=== PATIENT | female | born 1980 | race Caucasian/White ===

== ENCOUNTER → 2017-03-09 | Outpatient (CLI) | payer MEDICAID ==
[2017-03-09 11:10] LABS: Basophils # (A) 0.1 k/uL (0-0.2); Basophils % (A) 1 %; CH 30.5; CHCM 33.5; Eosinophils # (A) 0.3 k/uL (0-0.7); Eosinophils % (A) 3 %; HCT 45.4 % (34.0-46.0); HDW 2.41; Luc # (Auto) 0.21; Luc % (Auto) 2; Lymphocytes # (A) 3.3 k/uL (1.0-4.8); Lymphocytes % (A) 35 %; MCH 30.3 pg (25.0-35.0); MCHC 33.1 g/dL (31.0-37.0); MCV 91.5 fL (80.0-100.0); Mean Platelet Volume 6.3; Monocytes # (A) 0.5 k/uL (0-1.0); Monocytes % (A) 5 %; Neutrophils # (A) 5.2 k/uL (1.3-7.7); Neutrophils % (A) 54 %; RBC 4.96 m/uL (3.80-5.40); RDW 13.2 % (11.5-15.5); WBC 9.6 k/uL (3.8-10.6); WBC (Perox) 9.89
[2017-03-09 11:23] LABS: ALT 36 U/L (9-52); AST 18 U/L (14-36); Alkaline Phosphatase 78 U/L (38-126); Anion Gap 9 mmol/L; Blood Urea Nitrogen 11 mg/dL (7-17); Calcium 9.4 mg/dL (8.4-10.2); Carbon Dioxide 27 mmol/L (22-30); Chloride 104 mmol/L (98-107); Cholesterol 255 mg/dL (<200); Glucose 94 mg/dL (74-99); HDL Cholesterol 58 mg/dL (40-60); Non-African American GFR(MDRD) >60 (>60 ml/min/1.73 sqM); Potassium 4.2 mmol/L (3.5-5.1); Sodium 140 mmol/L (137-145); Total Bilirubin 0.7 mg/dL (0.2-1.3); Total Protein 7.3 g/dL (6.3-8.2); Triglycerides 204 mg/dL (<150)
== END | disposition home or self-care (01) ==
LOC: LABWHC1 10:38
PROVIDERS: ATTEND Family Medicine
DX: Z00.00 Encounter for general adult medical examination without abnormal findings (principal)
CPT/HCPCS: 36415; 80053; 80061; 84439; 84443; 85025

== ENCOUNTER → 2017-06-01 | Outpatient (CLI) | payer MEDICAID ==
[2017-06-01 14:06] LABS: ALT 38 U/L (9-52); AST 17 U/L (14-36); Alkaline Phosphatase 87 U/L (38-126); Anion Gap 6 mmol/L; Blood Urea Nitrogen 8 mg/dL (7-17); Calcium 9.1 mg/dL (8.4-10.2); Carbon Dioxide 26 mmol/L (22-30); Chloride 105 mmol/L (98-107); Cholesterol 150 mg/dL (<200); Glucose 88 mg/dL (74-99); HDL Cholesterol 51 mg/dL (40-60); Non-African American GFR(MDRD) >60 (>60 ml/min/1.73 sqM); Potassium 4.3 mmol/L (3.5-5.1); Sodium 137 mmol/L (137-145); Total Bilirubin 0.6 mg/dL (0.2-1.3); Total Protein 6.1 g/dL (6.3-8.2)
== END | disposition home or self-care (01) ==
LOC: LABWHC1 12:34
PROVIDERS: ATTEND Family Medicine
DX: E78.2 Mixed hyperlipidemia (principal)
CPT/HCPCS: 36415; 80053; 80061

== ENCOUNTER → 2017-10-31 | Outpatient (CLI) | payer MEDICAID ==
[2017-10-31 09:23] LABS: Basophils # (A) 0.1 k/uL (0-0.2); Basophils % (A) 1 %; Eosinophils # (A) 0.3 k/uL (0-0.7); Eosinophils % (A) 3 %; HCT 47.1 % (34.0-46.0); HGB 14.8 gm/dL (11.4-16.0); Lymphocytes % (A) 35 %; MCH 28.7 pg (25.0-35.0); MCHC 31.4 g/dL (31.0-37.0); MCV 91.1 fL (80.0-100.0); Mean Platelet Volume 6.8; Monocytes # (A) 0.5 k/uL (0-1.0); Monocytes % (A) 6 %; Neutrophils # (A) 4.6 k/uL (1.3-7.7); Neutrophils % (A) 54 %; Platelet Count 288 k/uL (150-450); RBC 5.17 m/uL (3.80-5.40); RDW 12.8 % (11.5-15.5); WBC 8.5 k/uL (3.8-10.6)
[2017-10-31 09:38] LABS: ALT 30 U/L (9-52); AST 15 U/L (14-36); Albumin 3.7 g/dL (3.5-5.0); Alkaline Phosphatase 59 U/L (38-126); Anion Gap 8 mmol/L; Blood Urea Nitrogen 14 mg/dL (7-17); Calcium 9.5 mg/dL (8.4-10.2); Carbon Dioxide 27 mmol/L (22-30); Chloride 104 mmol/L (98-107); Cholesterol 137 mg/dL (<200); Glucose 104 mg/dL (74-99); HDL Cholesterol 49 mg/dL (40-60); LDL Cholesterol,Calculated 67 mg/dL (0-99); Potassium 4.8 mmol/L (3.5-5.1); Sodium 139 mmol/L (137-145); Total Bilirubin 0.5 mg/dL (0.2-1.3); Total Protein 5.9 g/dL (6.3-8.2); Triglycerides 104 mg/dL (<150)
[2017-10-31 09:53] LABS: T4, Free (Free Thyroxine) 0.85 ng/dL (0.78-2.19)
== END | disposition home or self-care (01) ==
LOC: LABWHC1 08:59
PROVIDERS: ATTEND Family Medicine
DX: E78.5 Hyperlipidemia, unspecified (principal); R63.5 Abnormal weight gain; N92.6 Irregular menstruation, unspecified
CPT/HCPCS: 36415; 80053; 80061; 83001; 83002; 84439; 84443; 85025

== ENCOUNTER 2018-04-05 09:30 | Day surgery (SDC) | payer MEDICAID ==
[2018-04-02 09:25] VITALS: BMI 41.1
--- NOTE | 2018-04-05 05:09 | HP ---
HISTORY AND PHYSICAL CHIEF COMPLAINT: Chronic right serous otitis media. HISTORY OF PRESENT ILLNESS: This patient is a pleasant 37-year-old female who was recently seen in my office complaining of having a plugged sensation in her right ear which began just before Father's Day this year. She has been on oral antibiotics with no significant improvement. At the time that she was seen in my office, clinical examination of the ears revealed the patient had chronic right serous otitis media so-called glue ear. The patient was placed on a course of oral steroids for 10 days. On her recheck in the office, clinical examination revealed there was no change than her previous exam and therefore it was recommended the patient undergo a right myringotomy with insertion of ventilation tubes. The patient was, however, advised that if at the time of surgery if no fluid was found than either a tube would not be inserted or if a tube was inserted it would most likely be a pediatric Tytan tube. PAST MEDICAL HISTORY: Past medical history reveals that the patient has no known allergies to medications. Current medications include Lipitor. There is no history of asthma, diabetes mellitus or hypertension. She has not had any previous surgeries. REVIEW OF SYSTEMS: Review of systems is positive with respect to the metabolic endocrine system in that the patient is known to have hypercholesterolemia. The remainder of the review of systems is unremarkable. PHYSICAL EXAMINATION: This patient is a very pleasant, 37-year-old female who was alert and cooperative. HEENT EXAMINATION: Patient is normocephalic. Examination of the left ear is unremarkable. Examination of the right ear reveals the right tympanic membrane is dull with fluid in the right middle ear space. Pupils equal, round and react to light and accommodation. Extraocular movements within normal limits. Intranasal examination, examination of oropharynx and the remainder of the head and neck exam including cranial nerves 2 through 12 are all within normal limits. CHEST/CARDIOVASCULAR: Both lung babb are clear to percussion and auscultation. Patient is in regular sinus rhythm. S1 and S2 are present without evidence of any murmurs, S3s or S4s. Peripheral pulses are bilaterally symmetrical and within normal limits. ABDOMEN: There is no evidence of any masses, megaly or tenderness. The abdomen is soft. Skin is unremarkable. Musculoskeletal and neurological are within normal limits. PELVIC RECTAL EXAM: The pelvic rectal exam is deferred at this time because the patient has this done on a regular basis at her family physician's office. The remainder of the physical exam is unremarkable. IMPRESSION: Chronic right serous otitis media. PLAN: The patient is scheduled undergo a right myringotomy with insertion of ventilation tube under IV sedation with MAC in a.m. ATTENTION RNS IN THE PRE-SURGICAL AREA: I have not ordered any pre-surgical prophylactic antibiotics for this patient. If the pharmacy department sends any pre- surgical prophylactic antibiotics for this patient to the pre-surgical area, that order should be canceled and the medication returned to the pharmacy department. Please make sure that the patient's account is credited appropriately. I have discussed the risks, benefits and alternative therapies for the above-mentioned procedure and for both sedation/analgesia as well as necessary blood product administration, if indicated, as they pertain to this patient. The patient has indicated his or her understanding and acceptance of the risks and procedures discussed. ANNE MARIE / UNIQUE: [id number] /
[~2018-04-05 09:30] MED LIST: DEXAMETHASONE SOD PHOSPHATE 10 MG/ML 1 ML VIAL IV ONE; LACTATED RINGERS 1,000 ML IV SCH; LIDOCAINE 1% 20 ML VIAL (10MG/ML) FOR IV START INTRADERMA PRN; Pre Op ABX Message 1 EACH MISC MISCELLANE ONE
[2018-04-05 10:22] VITALS: TEMP 99.1
[2018-04-05] MEDS ORDERED: ONDANSETRON 4 MG/2 ML VIAL IVP ONE (10:34)
[2018-04-05] MEDS ORDERED: PROPOFOL 10 MG/ML 20 ML VIAL IV ONE (10:57)
[2018-04-05] MEDS ORDERED: MIDAZOLAM 2 MG/2 ML VIAL ONE (10:57)
[2018-04-05] MEDS ORDERED: KETAMINE 10 MG/ML 20 ML VIAL ONE (10:57)
[2018-04-05] MEDS ORDERED: fentaNYL (PF) 50 MCG/ML 2 ML AMP ONE (10:57)
[2018-04-05] MEDS ORDERED: LIDOCAINE 1% INJ 10MG/ML (20 ML MDV) ONE (10:57)
[2018-04-05] MEDS ORDERED: OFLOXACIN 0.3% OTIC DROPS 5 ML BTL RIGHT EAR ONE (11:13)
[2018-04-05 11:28] VITALS: RESP 18
[2018-04-05 11:48] VITALS: BP 102/68; PULSE 79
--- NOTE | 2018-04-06 04:55 | OP ---
OPERATIVE REPORT DATE OF SURGERY: 04/05/2018. PREOPERATIVE DIAGNOSIS: Chronic right serous otitis media. POSTOPERATIVE DIAGNOSIS: Chronic right serous otitis media. ANESTHESIA: IV sedation with MAC. OPERATING SURGEON: Dr. Coyle. OPERATIVE PROCEDURE: Right myringotomy with insertion of an Activent Everett-Bobbin ventilation tube COMPLICATIONS: None. ESTIMATED BLOOD LOSS: Zero. OPERATIVE PROCEDURE: The patient was placed on the operating table in supine position and after uneventful IV sedation, satisfactory sedation was obtained. Next the patient's right ear was draped in usual and customary fashion following which using the Zeiss operating microscope and a #3 aural speculum, the right external auditory canal was cleansed of all wax and debris. Next, a myringotomy knife was used to make an incision in the anterior inferior quadrant of the right tympanic membrane. The right middle ear space was suctioned free of all fluid and a Activent Everett-Bobbin ventilation tube was inserted through the previously made myringotomy incision without difficulty. At this point, the procedure was terminated. There were no intraoperative complications. The patient tolerated the procedure well and was returned to the recovery room in satisfactory condition. MMODL / IJN: [id number] /
== END 2018-04-05 12:03 | disposition home or self-care (01) ==
LOC: OR 09:30
PROVIDERS: ATTEND Otolaryngology
DX: H65.21 Chronic serous otitis media, right ear (principal); E78.00 Pure hypercholesterolemia, unspecified; Z79.899 Other long term (current) drug therapy; Z91.048 Other nonmedicinal substance allergy status; F17.210 Nicotine dependence, cigarettes, uncomplicated
CPT/HCPCS: 81025; 69436; J2250; J1100; J2405; J2001; J3010; J2704

== ENCOUNTER → 2018-11-23 | Outpatient (CLI) | payer MEDICAID ==
--- NOTE | 2018-11-24 10:36 | MM ---
Reason for exam: screening (asymptomatic). Baseline mammogram. Physical Findings: Nurse did not find any significant physical abnormalities on exam. MG 3D Screening Mammo W/Cad Bilateral CC and MLO view(s) were taken. There are scattered fibroglandular densities. There is no discrete abnormality. These results were verbally communicated with the patient and result sheet given to the patient on 11/23/18. ASSESSMENT: Negative, BI-RAD 1 RECOMMENDATION: Routine screening mammogram of both breasts in 1 year.
== END ==
LOC: RADMAMWWP 14:57
PROVIDERS: ATTEND Obstetrics & Gynecology
DX: Z12.31 Encounter for screening mammogram for malignant neoplasm of breast (principal)
CPT/HCPCS: 77063; 77067

== ENCOUNTER 2018-11-24 10:35 | Day surgery (SDC) | payer MEDICAID ==
[2018-11-18 14:47] VITALS: BMI 41.1
[~2018-11-24 10:35] MED LIST changes: -DEXAMETHASONE SOD PHOSPHATE 10 MG/ML 1 ML VIAL IV ONE; +FAMOTIDINE 20 MG/2 ML VIAL IV ONE; -LIDOCAINE 1% 20 ML VIAL (10MG/ML) FOR IV START INTRADERMA PRN; +ONDANSETRON 4 MG/2 ML VIAL IVP ONE; -Pre Op ABX Message 1 EACH MISC MISCELLANE ONE
[2018-11-24] MEDS ORDERED: fentaNYL (PF) 50 MCG/ML 2 ML AMP ONE (13:27)
[2018-11-24] MEDS ORDERED: MIDAZOLAM 2 MG/2 ML VIAL ONE (13:27)
[2018-11-24] MEDS ORDERED: PROPOFOL 10 MG/ML 20 ML VIAL IV ONE (13:27)
[2018-11-24] MEDS ORDERED: LIDOCAINE 1% INJ 10MG/ML (20 ML MDV) ONE (13:27)
[2018-11-24] MEDS ORDERED: OFLOXACIN 0.3% OTIC DROPS 5 ML BTL RIGHT EAR ONE ×2 (13:35→13:42)
[2018-11-24] MEDS ORDERED: LACTATED RINGERS 1,000 ML IV ONE (14:05)
--- NOTE | 2018-11-24 14:06 | P.OP ---
Date of Procedure: 11/24/18 Preoperative Diagnosis: Right chronic otitis media with retained ventilation tube Postoperative Diagnosis: Same Procedure(s) Performed: Removal retained ventilation tube Right ventilation tube placement under microscopy Anesthesia: ETIENNE Surgeon: Darvin Calzada Estimated Blood Loss (ml): 1 Pathology: none sent Condition: stable Disposition: PACU Indications for Procedure: This is a 38-year-old white female who has a previously placed ventilation tube in the right ear and this is becoming obstructed and she's had recurrent middle ear effusion Operative Findings: Retained right ventilation tube with serous otitis media on the right Description of Procedure: The patient was brought in the operative suite and placed in a supine position. The patient underwent induction of general anesthesia with mask inhalation and IV agents. The patient was prepped and draped in usual aseptic fashion. The Zeiss microscope was brought into position to evaluate the right ear. Cerumen was cleaned from the external auditory canal. The ventilation tube was nearly extruded and was removed. There was only a very small myringotomy yet anteriorly and therefore this was left intact. There is minimal granulation which was debrided also. A separate inferior myringotomy was placed in radial fashion and the middle ear effusion was aspirated. There was a considerable serous effusion with some minimal brown-medina. This was thinned. This was aspirated with a #3 suction. A triune ventilation tube was placed without difficulty. Ofloxacin otic drops were placed followed by sterile cotton ball. The patient was allowed to emerge from anesthesia having tolerated procedure well and transferred to postop recovery area in satisfactory
[2018-11-24 14:14] VITALS: TEMP 98.1
[2018-11-24] MEDS: HYDROmorphone 1 MG/ML 1 ML SYRINGE IVP ONE ×2 (14:21→14:29)
[2018-11-24 15:00] VITALS: RESP 18
[2018-11-24 15:08] VITALS: BP 122/80; PULSE 84
== END 2018-11-24 15:25 | disposition home or self-care (01) ==
LOC: OR 10:35
PROVIDERS: ATTEND Otolaryngology
DX: H66.91 Otitis media, unspecified, right ear (principal); Z72.0 Tobacco use; E78.5 Hyperlipidemia, unspecified; E66.9 Obesity, unspecified; Z68.41 Body mass index [BMI] 40.0-44.9, adult; Z79.899 Other long term (current) drug therapy
CPT/HCPCS: 81025; 69436; J2250; J2001; J3010; J1170; J2704

== ENCOUNTER → 2019-03-02 | Outpatient (CLI) | payer MEDICAID ==
[2019-03-02 07:16] LABS: HCT 43.4 % (34.0-46.0); HGB 14.4 gm/dL (11.4-16.0); MCH 29.5 pg (25.0-35.0); MCHC 33.1 g/dL (31.0-37.0); MCV 89.2 fL (80.0-100.0); Mean Platelet Volume 6.6; Platelet Count 362 k/uL (150-450); RBC 4.86 m/uL (3.80-5.40); RDW 12.9 % (11.5-15.5); WBC 8.9 k/uL (3.8-10.6)
[2019-03-02 11:50] LABS: African American GFR (CKD) 132.1 (60.0-200.0); Albumin 4.3 g/dL (3.80-4.90); Albumin/Globulin Ratio 2.05 (1.60-3.17); Calcium 9.6 mg/dL (8.7-10.3); Globulin 2.1 g/dL (1.6-3.3); Total Bilirubin 0.6 mg/dL (0.2-1.2); Total Protein 6.4 g/dL (6.2-8.2)
[2019-03-02 11:58] LABS: T4, Free (Free Thyroxine) 1.1 ng/dL (0.80-1.80)
== END | disposition home or self-care (01) ==
LOC: LABWHC1 06:42
PROVIDERS: ATTEND Family Medicine
DX: Z00.00 Encounter for general adult medical examination without abnormal findings (principal); Z71.3 Dietary counseling and surveillance; Z68.42 Body mass index [BMI] 45.0-49.9, adult
CPT/HCPCS: 36415; 80053; 80061; 84439; 84443; 85027

== ENCOUNTER 2019-12-01 07:21 | Observation (INO) | payer MEDICAID ==
[2019-11-24 07:35] LABS: Basophils % (A) 1 %; Eosinophils # (A) 0.3 k/uL (0-0.7); Eosinophils % (A) 4 %; HCT 44.2 % (34.0-46.0); HGB 14.7 gm/dL (11.4-16.0); Lymphocytes # (A) 2.2 k/uL (1.0-4.8); Lymphocytes % (A) 29 %; MCH 29.8 pg (25.0-35.0); MCHC 33.4 g/dL (31.0-37.0); MCV 89.4 fL (80.0-100.0); Mean Platelet Volume 7.3; Monocytes # (A) 0.4 k/uL (0-1.0); Monocytes % (A) 6 %; Neutrophils # (A) 4.5 k/uL (1.3-7.7); Neutrophils % (A) 59 %; Platelet Count 399 k/uL (150-450); RBC 4.94 m/uL (3.80-5.40); RDW 12.4 % (11.5-15.5); WBC 7.6 k/uL (3.8-10.6)
[2019-11-25 07:47] LABS: African American GFR (CKD) 124.7 (60.0-200.0); Anion Gap 9.3 mmol/L (4.00-12.00); BUN/Creat Ratio 14.29 Ratio (12.00-20.00); Calcium 9.4 mg/dL (8.7-10.3); Carbon Dioxide 24.7 mmol/L (21.6-31.8); Non-African American GFR(CKD) 107.6 (60.0-200.0); Potassium 4.4 mmol/L (3.5-5.5)
[2019-11-29 11:22] VITALS: BMI 40.3
[~2019-12-01 07:21] MED LIST changes: +DEXAMETHASONE SOD PHOSPHATE 10 MG/ML 1 ML VIAL IV ONE; -FAMOTIDINE 20 MG/2 ML VIAL IV ONE; +HYDROmorphone 0.5 MG/0.5 ML SYRINGE IVP PRN; -LACTATED RINGERS 1,000 ML IV SCH; +LIDOCAINE 1% (10MG/ML) FOR IV START INTRADERMA PRN; +fentaNYL (PF) 50 MCG/ML 2 ML AMP IVP PRN
[2019-12-01] MEDS: LACTATED RINGERS 1,000 ML IV SCH ×2 (08:10→14:49)
[2019-12-01] MEDS: MIDAZOLAM 2 MG/2 ML VIAL IV PRN ×2 (08:21→08:31)
--- NOTE | 2019-12-01 08:38 | P.HPOB ---
History of Present Illness H&P Date: 12/01/19 Chief Complaint: Dysmenorrhea, failed NovaSure Keya is a 39-year-old female who has worsening pain with her menses and continued bleeding despite NovaSure ablation. Her symptoms have been worsening for a number of months and she is unable to function well at this time due to the pain and heavy bleeding. She is scheduled for a robotic-assisted laparoscopic hysterectomy with bilateral salpingectomy possible MELVIN possible BSO and use of cystoscopy to verify ureteral patency. Risks/benefits/alternatives to this portion procedure were discussed the patient in detail and did include but were not limited to damage to bladder, bowel, vascular injuries, nerve damage, bleeding, infection, ureteral injuries. Past Medical History Past Medical History: Hyperlipidemia Additional Past Medical History / Comment(s): right ear tube "plugged" History of Any Multi-Drug Resistant Organisms: None Reported Past Surgical History: Ear Surgery, Uterine Ablation Additional Past Surgical History / Comment(s): Myringotomy & tube right ear. Past Anesthesia/Blood Transfusion Reactions: Motion Sickness Past Psychological History: No Psychological Hx Reported Smoking Status: Current every day smoker Past Alcohol Use History: Rare Additional Past Alcohol Use History / Comment(s): 1/2ppd for 20 yrs. Past Drug Use History: None Reported - Past Family History Mother Family Medical History: No Reported History Medications and Allergies Home Medications Medication Instructions Recorded Confirmed Type Atorvastatin Calcium [Lipitor] 20 mg PO HS 04/02/18 12/01/19 History Allergies Allergy/AdvReac Type Severity Reaction Status Date / Time adhesive tape Allergy Rash/Hives Verified 12/01/19 07:45 Exam Osteopathic Statement: *. No significant issues noted on an osteopathic structural exam other than those noted in the History and Physical/Consult. - OBG Physical Exam Breast: both: normal (no masses) Abdomen: Obese Abdomen: bowel sounds normal, no diffuse tenderness, no bruit present, no guarding noted, no hepatomegaly, no splenomegaly, no mass Vulva: both: normal Vagina: normal moisture, no discharge Cervix: no lesion, no discharge Uterus: normal size, normal contour Adnexa: both: normal Anus/Rectum: normal perianal skin, no rectal mass, no hemorrhoids, heme negative Results Result Diagrams: 11/24/19 06:55 11/24/19 06:55
[2019-12-01] MEDS ORDERED: diphenhydrAMINE 50 MG/ML 1 ML VIAL IVP ONE (08:51)
[2019-12-01] MEDS ORDERED: LIDOCAINE 1% INJ 10MG/ML (20 ML MDV) ONE (09:13)
[2019-12-01] MEDS ORDERED: MORPHINE SULFATE (PF) 0.3 MG/0.3 ML SYR ONE (09:13)
[2019-12-01] MEDS ORDERED: ROCURONIUM BROMIDE 10 MG/ML 5 ML VIAL IV ONE (09:13)
[2019-12-01] MEDS ORDERED: NEOSTIGMINE 1 MG/ML 10 ML VIAL ONE (09:13)
[2019-12-01] MEDS ORDERED: PROPOFOL 10 MG/ML 20 ML VIAL IV ONE (09:13)
[2019-12-01] MEDS ORDERED: KETOROLAC 30 MG/ML 1 ML VIAL ONE (09:13)
[2019-12-01] MEDS ORDERED: fentaNYL (PF) 50 MCG/ML 2 ML AMP ONE (09:13)
[2019-12-01] MEDS ORDERED: GLYCOPYRROLATE 0.2 MG/ML 2 ML VIAL ONE (09:13)
[2019-12-01] MEDS ORDERED: BUPIVACAINE (PF) 0.25% 30 ML VIAL SQ ONE (09:51)
[2019-12-01] MEDS ORDERED: ONDANSETRON 4 MG/2 ML VIAL IVP PRN (10:31)
[2019-12-01] MEDS ORDERED: HYDROcodone/APAP 7.5-325MG 1 EACH TAB PO PRN (10:32)
--- NOTE | 2019-12-01 10:38 | P.OP ---
Date of Procedure: 12/01/19 Preoperative Diagnosis: Dysmenorrhea Postoperative Diagnosis: Same Procedure(s) Performed: Robotic-assisted laparoscopic hysterectomy with salpingectomy bilaterally and cystoscopy Anesthesia: ETIENNE Surgeon: Sriram Jett Supervisor Lime #1: Savannah Mak Estimated Blood Loss (ml): 20 IV fluids (ml): 400 Urine output (ml): 300 Pathology: other (Uterus, cervix and fallopian tubes) Condition: stable Disposition: floor Operative Findings: Pathology pending Description of Procedure: Patient was taken to the operating suite where a general anesthetic was found be adequate. She was prepped and draped in the normal sterile fashion and placed in dorsal lithotomy position. Initially a weighted speculum and into lip cervix identified grasped with single-tooth tenaculum. Cervix was then sounded to 8 cm and cervix was dilated. Cup sizes measured 3.5 cm and the Evie manipulator was inserted without difficulty. Once this was accomplished maximal Ascent of the uterus and measured and marked on the abdomen. Mcmanus catheter was placed and then gloves were changed and attention was turned to abdominal portion procedure with removal of instruments. Initially 2 mL of quarter percent Marcaine was injected 2 cm above the umbilicus. Through this injected anesthetic a 5 mm skin incision was made and through this incision under direct visualization with an optical trocar and sleeve the camera was inserted. Once peritoneal placement was assured gas was allowed to fully insufflate the abdomen and patient was placed in steep Trendelenburg position. Once accomplished 2 lateral ports were placed 10 cm lateral to the umbilicus on both right and left side through 8 mm skin incisions. A fourth port and sleeve was then inserted through a 110 mm incision between the left lateral and medial ports. Once this was accomplished camera port was exchanged for a robotic port and the robot was brought in and docked. Patient was then placed this Trendelenburg position at 25 and with a scissor and the 2 arm a Maryland grasper in 3 arm I broke scrub console. Observations pelvis were noted. Initially first the left looking tubes identified elevated and through the mesosalpinx cauterized and transected. It was then removed from the operative field. Utero-ovarian ligament was identified cauterized and transected moving through the mesosalpinx and broad ligament to the round ligament tissues were also cauterized and transected and then the round ligament was cauterized and transected and separation of the anterior posterior leafs the broad ligament was then done. Once this was completely accomplished vascularity on the left side of the uterus was cauterized. Latter flap was then identified and entered sharply with Metzenbaums and then undermining with a Maryland and incising across face the uterus the bladder was brought out of the operative field. Uterus was then tipped left side and the right side of the uterus was developed in the same fashion as the left side. Once this was accomplished with excellent cauterization of both left and right vascularity and the balloon was blown up in the Evie manipulator and an anterior colpotomy was made. Following the cervix around in a circumferential fashion 3 and 60 until the cervix was from vagina with excellent hemostasis noted throughout. Uterus was then pushed down into the vagina to maintain pneumoperitoneum. Once pedicles were felt to be hemostatic incidents were exchanged for a Zeferino grasper and a make suture cut and 2 OB lock suture was used to reapproximate the vaginal cuff. Once excel lent hemostasis was felt to be obtained pelvis was irrigated and then incidents removed gas was allowed to expel from the abdomen. 5 deep breaths were provided during this process. Once fully accomplished Dr. Mak close the incision subcuticularly with 4-0 Vicryl and injected the remaining 8 mL of quarter percent Marcaine. At the same time I did do a cystoscopy with excellent flow noted from both ureteral jets and inspection of the vagina revealed no lacerations or bleeding into the vagina either. All incidents were then removed. Sponge, lap, needle counts were all correct 2. Patient was then taken to the recovery room in stable and satisfactory condition.
[2019-12-01] MEDS ORDERED: NALBUPHINE 10 MG/ML (1 ML AMP) IV PRN (10:39)
[2019-12-01] MEDS ORDERED: diphenhydrAMINE 50 MG/ML 1 ML VIAL IVP PRN (10:39)
[2019-12-01] MEDS ORDERED: MORPHINE SULFATE 2 MG/ML SYRINGE IVP PRN (10:39)
[2019-12-01] MEDS ORDERED: NALOXONE 0.4 MG/ML 1 ML VIAL IV PRN (10:39)
[2019-12-01] MEDS: KETOROLAC 30 MG/ML 1 ML VIAL IVP PRN (21:41)
[2019-12-02] MEDS: KETOROLAC 30 MG/ML 1 ML VIAL IVP PRN (06:12)
--- NOTE | 2019-12-02 07:20 | P.PN ---
Progress Note - Text Progress Note Date: 12/02/19 Postoperative day 1 status post robotic hysterectomy under general endotracheal anesthesia,, and intrathecal morphine given for postoperative analgesia, patient doing well, there is no anesthesia related complications, Patient had no headache, vital signs stable , Assessment and plan= postop day 1 , doing well there is no anesthesia related complication.
[2019-12-02 07:24] LABS: Basophils % (A) 0 %; Eosinophils # (A) 0.1 k/uL (0-0.7); Eosinophils % (A) 1 %; HCT 39.3 % (34.0-46.0); HGB 12.5 gm/dL (11.4-16.0); Lymphocytes # (A) 2.9 k/uL (1.0-4.8); Lymphocytes % (A) 23 %; MCH 28.9 pg (25.0-35.0); MCHC 31.9 g/dL (31.0-37.0); MCV 90.8 fL (80.0-100.0); Monocytes # (A) 0.6 k/uL (0-1.0); Monocytes % (A) 5 %; Neutrophils # (A) 8.6 k/uL (1.3-7.7); Neutrophils % (A) 69 %; Platelet Count 324 k/uL (150-450); RBC 4.33 m/uL (3.80-5.40); RDW 12.5 % (11.5-15.5); WBC 12.4 k/uL (3.8-10.6)
--- NOTE | 2019-12-02 08:46 | P.DS ---
Providers Date of admission: 12/02/19 06:43 Expected date of discharge: 12/02/19 Attending physician: Sriram Jett Primary care physician: Guero [facility] Course: Keya is doing very well post op day 1. She is ambulating, voiding and t olerating her diet. She voices no other complaints. Vital signs are stable and afebrile. Abdomen soft positive bowel sounds are noted and she is passing flatus. Very scant blood coming from vagina home and when she wipes. Discharge instructions were thoroughly reviewed and all questions were answered for both she and her . Prescriptions for Wheelwright and Motrin for her to the pharmacy. She is stable for discharge this time. On physical exam heart regular, lungs clear, extremities without pain. Abdomen again soft with only mild incisional tenderness. Assessment postop day 1. Plan discharged home follow up with me in 2 weeks. Patient Condition at Discharge: Good Plan - Discharge Summary Discharge Rx Participant: Yes New Discharge Prescriptions: New Ibuprofen [Motrin] 600 mg PO Q6HR PRN #30 tab PRN Reason: Pain HYDROcodone/APAP 5-325MG [Wheelwright 5-325] 1 tab PO Q4HR PRN #30 tab PRN Reason: Pain No Action Atorvastatin Calcium [Lipitor] 20 mg PO HS Discharge Medication List Atorvastatin Calcium [Lipitor] 20 mg PO HS 04/02/18 [History] HYDROcodone/APAP 5-325MG [Wheelwright 5-325] 1 tab PO Q4HR PRN #30 tab 12/02/19 [Rx] Ibuprofen [Motrin] 600 mg PO Q6HR PRN #30 tab 12/02/19 [Rx] Follow up Appointment(s)/Referral(s): Sriram Jett DO [Doctor of Osteopathic Medicine] - 2 Weeks Activity/Diet/Wound Care/Special Instructions: No heavy lifting, limit stairs and driving, and pelvic rest. If any high temperatures, heavy bleeding, or severe pain call my office she is aware to have complete pelvic rest for at least 8 weeks Discharge Disposition: HOME SELF-CARE
[2019-12-02 09:28] VITALS: BP 99/60; PULSE 67; RESP 16; TEMP 98.3
== END 2019-12-02 11:15 | disposition home or self-care (01) ==
LOC: OR 07:21 → 4FBP 10:38 → OR 12-02 06:43
PROVIDERS: ADMIT Obstetrics & Gynecology; ATTEND Obstetrics & Gynecology
DX: D25.9 Leiomyoma of uterus, unspecified (principal); N94.6 Dysmenorrhea, unspecified; E78.5 Hyperlipidemia, unspecified; F17.210 Nicotine dependence, cigarettes, uncomplicated; E66.9 Obesity, unspecified; Z68.39 Body mass index [BMI] 39.0-39.9, adult; T85.9XXA Unspecified complication of internal prosthetic device, implant and graft, initial encounter; Z96.22 Myringotomy tube(s) status; Z91.040 Latex allergy status; Z98.890 Other specified postprocedural states; Z87.898 Personal history of other specified conditions; Z79.899 Other long term (current) drug therapy; Z91.09 Other allergy status, other than to drugs and biological substances
CPT/HCPCS: 58571; S2900; 80048; 81025; 85025; 86850; 86900; 86901; 88307

== ENCOUNTER → 2020-04-23 | Outpatient (CLI) | payer MEDICAID ==
--- NOTE | 2020-04-30 09:19 | MM ---
Reason for exam: screening (asymptomatic). Last mammogram was performed 1 year and 5 months ago. Physical Findings: A clinical breast exam by your physician is recommended on an annual basis and results should be correlated with mammographic findings. MG 3D Screening Mammo W/Cad Bilateral CC and MLO view(s) were taken. Prior study comparison: November 23, 2018, bilateral MG 3d screening mammo w/cad. Finding: There is a typically benign 4 mm equal density (isodense), circumscribed oval mass located 8 cm from the nipple in the 10 o'clock upper outer quadrant of the right breast. New finding since November 23, 2018. ASSESSMENT: Incomplete: need additional imaging evaluation, BI-RAD 0 RECOMMENDATION: Special view mammogram and ultrasound of the right breast. [facility] will attempt to contact patient to return for supplemental views and ultrasound.
== END | disposition home or self-care (01) ==
LOC: RADMAMWWP 15:53
PROVIDERS: ATTEND Obstetrics & Gynecology
DX: Z12.31 Encounter for screening mammogram for malignant neoplasm of breast (principal)
CPT/HCPCS: 77063; 77067

== ENCOUNTER → 2020-05-23 | Outpatient (CLI) | payer MEDICAID ==
--- NOTE | 2020-05-23 14:51 | MM ---
Reason for exam: additional evaluation requested from abnormal screening. Last mammogram was performed 1 month ago. Physical Findings: Nurse did not find any significant physical abnormalities on exam. MG 3D Work Up W/Cad RT Spot compression CC, spot compression MLO, and LM view(s) were taken of the right breast. Prior study comparison: April 23, 2020, bilateral MG 3d screening mammo w/cad. November 23, 2018, bilateral MG 3d screening mammo w/cad. Nodule persists upper outer quadrant right breast 5.6cm from nipple 6-7mm. These results were verbally communicated with the patient and result sheet given to the patient on 05/23/20. ASSESSMENT: Incomplete: need additional imaging evaluation, BI-RAD 0 RECOMMENDATION: Ultrasound of the right breast.
--- NOTE | 2020-05-23 14:52 | USB ---
Reason for exam: additional evaluation requested from abnormal screening. US Breast Workup Limited RT Right limited breast ultrasound including focal area of concern, retroareolar and axilla demonstrates a 0.6 x 0.4 x 0.6cm oval, cystic cluster at 12 o'clock appear fibrocystic. These results were verbally communicated with the patient and result sheet given to the patient on 05/23/20. ASSESSMENT: Probably benign, BI-RAD 3 RECOMMENDATION: Follow-up diagnostic mammogram and ultrasound of the right breast in 6 months.
== END | disposition home or self-care (01) ==
LOC: RADMAMWWP 13:31
PROVIDERS: ATTEND Obstetrics & Gynecology
DX: R92.8 Other abnormal and inconclusive findings on diagnostic imaging of breast (principal)
CPT/HCPCS: 77061; 77065

== ENCOUNTER → 2020-11-20 | Outpatient (CLI) | payer MEDICAID ==
--- NOTE | 2020-11-20 14:46 | MM ---
Reason for exam: follow-up at short interval from prior study. Last mammogram was performed 6 months ago. Physical Findings: Nurse did not find any significant physical abnormalities on exam. MG 3D Diag Mammo W/Cad RT CC and MLO view(s) were taken of the right breast. Prior study comparison: May 23, 2020, right breast MG 3d work up w/cad RT. April 23, 2020, bilateral MG 3d screening mammo w/cad. The breast tissue is heterogeneously dense. This may lower the sensitivity of mammography. There is chronic nodularity in the right breast. No significant new findings when compared with previous films. These results were verbally communicated with the patient and result sheet given to the patient on 11/20/20. ASSESSMENT: Benign, BI-RAD 2 RECOMMENDATION: Return to routine screening mammogram schedule for both breasts.
--- NOTE | 2020-11-20 14:48 | USB ---
Reason for exam: follow-up at short interval from prior study. US Breast Limited RT Right limited breast ultrasound including focal area of concern, retroareolar and axilla demonstrates a 0.7 x 0.4 x 0.5cm stable, cystic cluster at 12 o'clock. These results were verbally communicated with the patient and result sheet given to the patient on 11/20/20. ASSESSMENT: Probably benign, BI-RAD 3 RECOMMENDATION: Return to routine screening mammogram schedule for both breasts. Back on schedule.
== END | disposition home or self-care (01) ==
LOC: RADMAMWWP 13:29
PROVIDERS: ATTEND Obstetrics & Gynecology
DX: R92.8 Other abnormal and inconclusive findings on diagnostic imaging of breast (principal)
CPT/HCPCS: 77061; 77065

== ENCOUNTER → 2021-07-10 | Outpatient (CLI) | payer BC ==
--- NOTE | 2021-07-12 11:41 | MM ---
Reason for exam: screening (asymptomatic). Last mammogram was performed 8 months ago. Physical Findings: A clinical breast exam by your physician is recommended on an annual basis and results should be correlated with mammographic findings. MG 3D Screening Mammo W/Cad Bilateral CC, MLO, and XCCL view(s) were taken. Prior study comparison: November 20, 2020, right breast MG 3d diag mammo w/cad RT. May 23, 2020, right breast MG 3d work up w/cad RT. November 23, 2018, bilateral MG 3d screening mammo w/cad. There are scattered fibroglandular densities. Possible obscured nodularity anterior medial left breast, incompletely disperses on 3D. ASSESSMENT: Incomplete: need additional imaging evaluation, BI-RAD 0 RECOMMENDATION: Special view mammogram of the left breast. (3D) If lesion persists on supplemental views, image directed ultrasound is recommended. [facility] will attempt to contact patient to return for supplemental views and ultrasound if indicated.
== END | disposition home or self-care (01) ==
LOC: RADMAMWWP 15:55
PROVIDERS: ATTEND Obstetrics & Gynecology
DX: Z12.31 Encounter for screening mammogram for malignant neoplasm of breast (principal)
CPT/HCPCS: 77063; 77067

== ENCOUNTER → 2021-07-16 | Outpatient (CLI) | payer BC ==
--- NOTE | 2021-07-16 11:30 | MM ---
Reason for exam: additional evaluation requested from abnormal screening. Last mammogram was performed less than 1 month ago. History: Took hormonal contraceptives for 4 years. Physical Findings: Nurse did not find any significant physical abnormalities on exam. MG 3D Work Up W/Cad LT Spot compression CC, spot compression MLO, and LM view(s) were taken of the left breast. Prior study comparison: July 10, 2021, bilateral MG 3d screening mammo w/cad. November 20, 2020, right breast MG 3d diag mammo w/cad RT. Finding: There is a 6 mm circumscribed round mass located 3 cm from the nipple in the inner quadrant, anterior position of the left breast, persists on additional views. These results were verbally communicated with the patient and result sheet given to the patient on 07/16/21. ASSESSMENT: Incomplete: need additional imaging evaluation, BI-RAD 0 RECOMMENDATION: Ultrasound of the left breast.
--- NOTE | 2021-07-16 11:32 | USB ---
Reason for exam: additional evaluation requested from abnormal screening. History: Took hormonal contraceptives for 4 years. US Breast Workup Limited LT Left limited breast ultrasound including focal area of concern, retroareolar and axilla demonstrates a 6 x 4 x 7mm lobular, cystic cluster or likely debris filled cyst at 9 o'clock and a 5 x 3 x 4mm oval, cystic lesion at 10 o'clock, tiny chronic nodularity on mammogram. Scanned 7-11 o'clock. These results were verbally communicated with the patient and result sheet given to the patient on 07/16/21. ASSESSMENT: Probably benign, BI-RAD 3 RECOMMENDATION: Ultrasound of the left breast in 6 months.
== END | disposition home or self-care (01) ==
LOC: RADMAMWWP 10:22
PROVIDERS: ATTEND Obstetrics & Gynecology
DX: N60.02 Solitary cyst of left breast (principal); N63.20 Unspecified lump in the left breast, unspecified quadrant
CPT/HCPCS: 77061; 77065

== ENCOUNTER → 2022-02-03 | Outpatient (CLI) | payer BC ==
--- NOTE | 2022-02-03 15:24 | USB ---
Patient History: Menarche at age 7. First Full-Term at age 22. Hysterectomy at age 39. Patient used Hormonal Contraceptives for 4 years. Risk Values: Grazyna 5 year model risk: 0.7%. NCI Lifetime model risk: 9.6%. Technique: Method: Targeted. Prior Study Comparison: 11/20/2020 Right Diagnostic Mammogram, [facility]. 07/10/2021 Bilateral Screening Mammogram, [facility]. 07/16/2021 Left Diagnostic Mammogram, [facility]. Findings: The upper inner quadrant of the left breast was scanned. Finding 1: Simple cyst. Laterality: Left. Size 3 x 1 x 2 mm. 9 O'clock Quadrant: Upper inner. 2 cm cm from nipple. Shape: Round or Oval. Margin: Circumscribed (Well-Defined or Sharply-Defined). This is smaller in size versus prior visualized area at 9:00. Overall too small to further characterize. Overall Assessment: Benign, BI-RAD 2 Management: Screening Mammogram of both breasts in 6 months. A clinical breast exam by your physician is recommended on an annual basis and results should be correlated with mammographic findings.
== END | disposition home or self-care (01) ==
LOC: RADUSWWP 14:41
PROVIDERS: ATTEND Obstetrics & Gynecology
DX: N60.02 Solitary cyst of left breast (principal)

== ENCOUNTER → 2022-07-30 | Outpatient (CLI) | payer BC ==
--- NOTE | 2022-07-31 09:37 | MM ---
Reason for Exam: Screening (asymptomatic). Last mammogram was performed 1 year(s) and 1 month(s) ago. Patient History: Menarche at age 7. First Full-Term at age 22. Hysterectomy at age 39. Patient used Hormonal Contraceptives for 4 years. Risk Values: Grazyna 5 year model risk: 0.7%. NCI Lifetime model risk: 9.6%. Prior Study Comparison: 11/20/2020 Right Diagnostic Mammogram, [facility]. 07/10/2021 Bilateral Screening Mammogram, [facility]. 07/16/2021 Left Diagnostic Mammogram, [facility]. Tissue Density: There are scattered fibroglandular densities. Findings: Analyzed By CAD. There is no suspicious group of microcalcifications in either breast. Asymmetry demonstrated within the slightly superior right breast on the CC view middle depth. Additional asymmetry demonstrated within the inner left breast middle depth. Overall Assessment: Incomplete: need additional imaging evaluation, BI-RAD 0 Management: Diagnostic Mammogram of both breasts. A clinical breast exam by your physician is recommended on an annual basis and results should be correlated with mammographic findings. [facility] will attempt to contact patient to return for supplemental views and ultrasound if indicated. Electronically signed and approved by: Ever Valdez D.O.
== END | disposition home or self-care (01) ==
LOC: RADMAMWWP 10:09
PROVIDERS: ATTEND Obstetrics & Gynecology
DX: Z12.31 Encounter for screening mammogram for malignant neoplasm of breast (principal)
CPT/HCPCS: 77063; 77067

== ENCOUNTER → 2022-08-05 | Outpatient (CLI) | payer BC ==
--- NOTE | 2022-08-05 10:43 | MM ---
Reason for Exam: Additional evaluation requested from abnormal screening. Last screening mammogram was performed less than 1 month ago. Patient History: Menarche at age 7. First Full-Term at age 22. Hysterectomy at age 39. Patient used Hormonal Contraceptives for 4 years. Risk Values: Grazyna 5 year model risk: 0.7%. NCI Lifetime model risk: 9.6%. Prior Study Comparison: 07/16/2021 Left Diagnostic Mammogram, [facility]. 07/30/2022 Bilateral MG 3D screening mammo w/cad, [facility]. Tissue Density: There are scattered fibroglandular densities. Findings: Analyzed By CAD. 6 mm circumscribed equal density mass within the upper outer right breast 5 cm from the nipple. Additional 4 mm circumscribed low-density mass in the upper inner left breast 10 cm from the nipple. Overall Assessment: Incomplete: need additional imaging evaluation, BI-RAD 0 Management: Diagnostic Breast Ultrasound of both breasts. A clinical breast exam by your physician is recommended on an annual basis and results should be correlated with mammographic findings. This exam should not preclude additional follow-up of suspicious palpable abnormalities. Results were given to the patient verbally at the time of exam. Electronically signed and approved by: Ever Valdez D.O.
--- NOTE | 2022-08-05 11:32 | USB ---
Reason for Exam: Additional evaluation requested from abnormal screening. Patient History: Menarche at age 7. First Full-Term at age 22. Hysterectomy at age 39. Patient used Hormonal Contraceptives for 4 years. Risk Values: Grazyna 5 year model risk: 0.7%. NCI Lifetime model risk: 9.6%. Technique: Method: Targeted. Prior Study Comparison: 07/10/2021 Bilateral Screening Mammogram, [facility]. 07/16/2021 Left Diagnostic Mammogram, [facility]. 07/30/2022 Bilateral MG 3D screening mammo w/cad, [facility]. Findings: The upper outer quadrant of the right breast and the upper section of the breast of the left breast were scanned. Targeted ultrasound of the right breast from 9-12:00 was obtained. Targeted ultrasound of the left breast from 9-2:00 was obtained. Simple cyst is demonstrated in the right breast at 10:00 5 cm from the nipple measuring 0.6 x 0.2 x 0.5 cm. Hypoechoic ovoid well-circumscribed nodule within the right breast at 10:00 5 cm from the nipple measuring 0.5 x 0.5 cm they represent a cyst with internal debris. Additional cyst with internal debris demonstrated within the right breast at 12:00 5 cm from the nipple measuring 0.7 x 0.6 x 0.3 cm. No internal color flow identified. Cluster of cysts demonstrated within the left breast measuring 1.0 x 0.6 x 0.8 cm at 12:00 5 cm from the nipple. No internal color flow identified. Overall Assessment: Benign, BI-RAD 2 Management: Screening Mammogram of both breasts in 1 year. A clinical breast exam by your physician is recommended on an annual basis and results should be correlated with mammographic findings. This exam should not preclude additional follow-up of suspicious palpable abnormalities. Results were given to the patient verbally at the time of exam. Electronically signed and approved by: Ever Valdez D.O.
== END | disposition home or self-care (01) ==
LOC: RADMAMWWP 10:13
PROVIDERS: ATTEND Obstetrics & Gynecology
DX: R92.8 Other abnormal and inconclusive findings on diagnostic imaging of breast (principal)
CPT/HCPCS: 77062; 77066

== ENCOUNTER → 2023-08-17 | Outpatient (CLI) | payer BC ==
--- NOTE | 2023-08-18 12:28 | MM ---
Reason for Exam: Screening (asymptomatic). Last screening mammogram was performed 12 month(s) ago. Patient History: Menarche at age 7. First Full-Term at age 22. Hysterectomy at age 39. Patient used Hormonal Contraceptives for 4 years. Risk Values: Grazyna 5 year model risk: 0.8%. NCI Lifetime model risk: 9.5%. Prior Study Comparison: 07/16/2021 Left Diagnostic Mammogram, [facility]. 07/30/2022 Bilateral MG 3D screening mammo w/cad, [facility]. 08/05/2022 Bilateral MG 3D work up w/cad ADEL[place], [facility]. Tissue Density: The breast tissue is heterogeneously dense. This may lower the sensitivity of mammography. Findings: Analyzed By CAD. There is no suspicious group of microcalcifications or new suspicious mass in either breast. Overall Assessment: Negative, BI-RAD 1 Management: Screening Mammogram of both breasts in 1 year. . Patient should continue monthly self-breast exams. A clinical breast exam by your physician is recommended on an annual basis. This exam should not preclude additional follow-up of suspicious palpable abnormalities. Note on Grazyna scores and lifetime risk: 1. A Grazyna score greater than 3% is considered moderate risk. If this is the case, consider specialist referral to assess eligibility for a risk reducing agent. 2. If overall lifetime risk for the development of breast cancer is 20% or higher, the patient may qualify for future screening with alternating mammogram and breast MRI. Electronically signed and approved by: Abilio Ott M.D. Radiologis
== END | disposition home or self-care (01) ==
LOC: RADMAMWWP 13:34
PROVIDERS: ATTEND Obstetrics & Gynecology
DX: Z12.31 Encounter for screening mammogram for malignant neoplasm of breast (principal)
CPT/HCPCS: 77063; 77067

== ENCOUNTER → 2024-09-15 | Outpatient (CLI) | payer BC ==
--- NOTE | 2024-09-20 19:06 | MM ---
Reason for Exam: Screening (asymptomatic). Last mammogram was performed 1 year(s) and 1 month(s) ago. Patient History: Menarche at age 7. First Full-Term at age 22. Hysterectomy at age 39. Patient used Hormonal Contraceptives for 4 years. Risk Values: Grazyna 5 year model risk: 0.8%. NCI Lifetime model risk: 9.4%. Prior Study Comparison: 07/30/2022 Bilateral MG 3D screening mammo w/cad, [facility]. 08/05/2022 Bilateral MG 3D work up w/cad ADEL[place], [facility]. 08/17/2023 Bilateral MG 3D screening mammo w/cad, [facility]. Tissue Density: There are scattered areas of fibroglandular density. Findings: Analyzed By CAD. Isodense nodular asymmetric density and clot right breast middle depth appears new/increased. Additional medial asymmetric density anterior right cc view appears more defined. Further evaluation is recommended. Otherwise, no significant change. Overall Assessment: Incomplete: need additional imaging evaluation, BI-RAD 0 Management: Special View Mammogram of the right breast. Diagnostic Breast Ultrasound of the right breast. [facility] will attempt to contact patient to return for supplemental views and ultrasound if indicated. [facility], , 09/20/2024 7:03 PM. Electronically signed and approved by: Liana Goode M.D. Radiologist
== END | disposition home or self-care (01) ==
LOC: RADMAMWWP 15:52
PROVIDERS: ATTEND Obstetrics & Gynecology
DX: Z12.31 Encounter for screening mammogram for malignant neoplasm of breast (principal); R92.323 Mammographic fibroglandular density, bilateral breasts
CPT/HCPCS: 77063; 77067

== ENCOUNTER → 2024-10-10 | Outpatient (CLI) | payer BC ==
--- NOTE | 2024-10-10 10:39 | MM ---
Reason for Exam: Clinical finding. Last screening mammogram was performed less than 1 month ago. Patient History: Menarche at age 7. First Full-Term at age 22. Hysterectomy at age 39. Patient used Hormonal Contraceptives for 4 years. Risk Values: Grazyna 5 year model risk: 0.8%. NCI Lifetime model risk: 9.3%. Prior Study Comparison: 08/05/2022 Bilateral MG 3D work up w/cad ADEL[place], [facility]. 08/17/2023 Bilateral MG 3D screening mammo w/cad, [facility]. 09/15/2024 Bilateral MG 3D screening mammo w/cad, [facility]. Tissue Density: Right: There are scattered areas of fibroglandular density. Findings: Analyzed By CAD. Persistent 9 mm isodense nodule upper quadrant right breast for which further ultrasound evaluation is recommended. 6 mm area of nodular asymmetry persists as well upper outer quadrant. Isodense to low-density appearance favors a benign etiology such as a cyst. Further ultrasound evaluation recommended. Overall Assessment: Incomplete: need additional imaging evaluation, BI-RAD 0 Management: Diagnostic Breast Ultrasound of the right breast. [facility], , 10/10/2024 10:36 AM. Electronically signed and approved by: Liana Goode M.D. Radiologist
--- NOTE | 2024-10-10 11:16 | USB ---
Reason for Exam: Additional evaluation requested from abnormal screening. Patient History: Menarche at age 7. First Full-Term at age 22. Hysterectomy at age 39. Patient used Hormonal Contraceptives for 4 years. Risk Values: Grazyna 5 year model risk: 0.8%. NCI Lifetime model risk: 9.3%. Technique: Method: Targeted. Prior Study Comparison: 08/05/2022 Bilateral MG 3D work up w/cad [place], [facility]. 08/17/2023 Bilateral MG 3D screening mammo w/cad, [facility] 09/15/2024 Bilateral MG 3D screening mammo w/cad, [facility]. Findings: The upper section of the breast of the right breast, the axilla of the right breast and the retroareolar of the right breast were scanned. Targeted ultrasound superior half of the right breast 9:00 to 3:00 including scanning of the subareolar region and axilla. Multiple small cysts are present including a couple at 11:00 measuring up to 4 mm. 12:00 measuring 8 mm, possible mammographic correlate. At 3:00, 5 cm from the nipple, there is a cyst cluster versus debris-filled cyst measuring 5 mm. Six-month follow-up mammogram recommended. Overall Assessment: Probably benign, BI-RAD 3 Management: Diagnostic Mammogram of the right breast in 6 months. A clinical breast exam by your physician is recommended on an annual basis and results should be correlated with mammographic findings. This exam should not preclude additional follow-up of suspicious palpable abnormalities. Results were given to the patient verbally at the time of exam. [facility], , 10/10/2024 11:12 AM. Electronically signed and approved by: Liana Goode M.D. Radiologist
== END | disposition home or self-care (01) ==
LOC: RADMAMWWP 10:08
PROVIDERS: ATTEND Obstetrics & Gynecology
DX: R92.8 Other abnormal and inconclusive findings on diagnostic imaging of breast (principal); R92.321 Mammographic fibroglandular density, right breast; R92.2 Inconclusive mammogram
CPT/HCPCS: 77061; 77065

== ENCOUNTER → 2025-03-29 | Outpatient (CLI) | payer BC ==
--- NOTE | 2025-03-29 09:04 | MM ---
Reason for Exam: Follow-up at short interval from prior study. Last screening mammogram was performed 7 month(s) ago. Patient History: Menarche at age 7. First Full-Term at age 22. Hysterectomy at age 39. Patient used Hormonal Contraceptives for 4 years. Risk Values: Grazyna 5 year model risk: 0.8%. NCI Lifetime model risk: 9.3%. Prior Study Comparison: 08/17/2023 Bilateral MG 3D screening mammo w/cad, [facility]. 09/15/2024 Bilateral MG 3D screening mammo w/cad, [facility]. 10/10/2024 Right MG 3D work up w/cad RT, [facility]. Tissue Density: Right: There are scattered areas of fibroglandular density. Findings: Analyzed By CAD. Stable chronic nodularity in the right breast. No suspicious new or enlarging lesions. Overall Assessment: Benign, BI-RAD 2 Management: Screening Mammogram of both breasts in 6 months. Back on bilateral annual schedule. Results were given to the patient verbally at the time of exam. Patient should continue monthly self-breast exams. A clinical breast exam by your physician is recommended on an annual basis. This exam should not preclude additional follow-up of suspicious palpable abnormalities. Note on Grazyna scores and lifetime risk: 1. A Grazyna score greater than 3% is considered moderate risk. If this is the case, consider specialist referral to assess eligibility for a risk reducing agent. 2. If overall lifetime risk for the development of breast cancer is 20% or higher, the patient may qualify for future screening with alternating mammogram and breast MRI. [facility], , 03/29/2025 9:01 AM. Electronically signed and approved by: Cliff Thornton M.D.
== END | disposition home or self-care (01) ==
LOC: RADMAMWWP 08:27
PROVIDERS: ATTEND Obstetrics & Gynecology
DX: R92.2 Inconclusive mammogram (principal); N60.11 Diffuse cystic mastopathy of right breast; R92.321 Mammographic fibroglandular density, right breast; Z92.0 Personal history of contraception
CPT/HCPCS: 77061; 77065